=== PATIENT | female | born 1970 | race Caucasian/White ===

== ENCOUNTER 2020-06-24 21:00 | Emergency (ER) | payer OTHER | END 2020-06-24 22:04 | disposition other institution (70) | LOC: ED 21:00 | DX: Z02.89 Encounter for other administrative examinations (principal) ==

== ENCOUNTER 2020-06-24 21:00 | Emergency (ER) | payer SELFPAY ==
[~2020-06-24] VITALS: Ht 160 cm; Wt 72.6 kg
[2020-06-24 21:05] VITALS: Ht 160 cm; Wt 72.6 kg
[2020-06-24 22:01] VITALS: BP 152/86
== END 2020-06-24 22:04 | disposition other institution (70) ==
LOC: ED 21:00
DX: R00.2 Palpitations (principal); F17.210 Nicotine dependence, cigarettes, uncomplicated
CPT/HCPCS: 99406